=== PATIENT | male | born 1960 | race Caucasian/White ===

== ENCOUNTER 2018-10-07 14:32 | Outpatient (CLI) | payer BC ==
[~2018-10-07 14:32] MED LIST: Iopamidol 370 76% 100 ML VIAL ONE
--- NOTE | 2018-10-07 17:41 | CT ---
CT ANGIOGRAM THORAX WITH IV CONTRAST AND 3D RECONSTRUCTIONS: 10/07/2018 HISTORY: Aortic aneurysm, unspecified portion of aorta. Follow-up evaluation. COMPARISON: 10/03/2016 and 10/13/2015 FINDINGS: There is stable mild aneurysmal dilatation of the ascending thoracic aorta, which measures 4.6 cm in diameter. The greatest dimension of the aortic arch is 3.3 cm, with the descending thoracic aorta me asuring approximately 3 cm. There is no evidence of an aortic dissection. There is a common origin of the left common carotid artery and the innominate artery. The origin of the great vessels is scott nt. Calcified mediastinal and left hilar lymph nodes are again noted. There is a stable, approximately 6 mm nodular density in the right middle lobe, unchanged in size com pared to study in 2015, including study on 05/06/2015. No new or additional pulmonary nodules seen w ithin the lungs bilaterally. There is a stable intraarticular loose body in the subcoracoid recess, also seen in 2015, and there i s bilateral glenohumeral osteoarthropathy, greater on the right. No other interval change from prior exam. IMPRESSION: Stable CT scan thorax, dating back to studies in 2014, with stable mild aneurysmal dilatation of the ascending thoracic aorta. POS: DONOVAN
== END 2018-10-07 14:33 | disposition home or self-care (01) ==
LOC: BICCT 14:32
PROVIDERS: ATTEND Internal Medicine Cardiovascular Disease
DX: I71.2 Thoracic aortic aneurysm, without rupture (principal)
CPT/HCPCS: 71275

== ENCOUNTER 2020-12-10 08:33 | Outpatient (CLI) | payer BC ==
[2020-12-10] MEDS ORDERED: Iopamidol 370 76% 100 ML VIAL ONE (10:18)
--- NOTE | 2020-12-10 11:28 | CT ---
CTA CHEST WITH CONTRAST: Date: 12/10/2020 Axial tomograms with multiplanar reconstruction and 3D postprocessing performed. INDICATION: Follow-up thoracic aortic aneurysm. COMPARISON: CTA chest 06/02/2020. FINDINGS: Mild aneurysmal dilatation of the ascending thoracic aorta again noted. Maximal diameter in the axial plane recorded at 4.7 cm. This is stable from the prior study of 06/02/2020. No evidence of dissecti on. The upper descending thoracic aorta measures 3.0 cm diameter and is stable. The lower descending thoracic aorta diameter measured at 2.7 cm, stable. Mediastinum unremarkable. Pulmonary arteries are opacified. No evidence of proximal pulmonary embolus. The lung chopra are anuj r. Degenerative changes in the spine. Images through upper abdomen unremarkable. IMPRESSION: Aneurysmal dilatation of the ascending thoracic aorta is stable from prior exam. POS: AGW
== END 2020-12-10 08:34 | disposition home or self-care (01) ==
LOC: BICCT 08:33
PROVIDERS: ATTEND Internal Medicine Cardiovascular Disease
DX: I71.2 Thoracic aortic aneurysm, without rupture (principal)
CPT/HCPCS: 71275; Q9967